=== PATIENT | male | born 1950 | race Caucasian/White ===

== ENCOUNTER → 2016-08-10 | Outpatient (CLI) | payer MEDICARE, OTHER ==
[2014-12-23 12:35] VITALS: BP 163/67
[~2016-08-10] MED LIST: ASPI325T4 PO; CLOP75TA PO; GADOBUTROL 10 MMOL/10 ML VIAL IV ONE; LISI-334 PO; METO25TA4 PO; SIMV20TA3 PO
--- NOTE | 2016-08-10 12:40 | RAD ---
PROCEDURE MRI of the cervical spine without and with contrast 08/10/2016 HISTORY Neck pain with left arm pain for the last 6 months. TECHNIQUE Unenhanced T1 weighted, T2 weighted and inversion recovery sagittal and gradient echo, T2 weighted and T1 weighted axial images of the cervical spine were obtained. After the intravenous administration of 10 cc of Gadavist, enhanced T1 weighted sagittal and axial images of the cervical spine were obtained. FINDINGS There is straightening of the normal cervical lordosis. Degenerative signal changes are seen involving all of the discs of the cervical spine. Loss of height of the C5-6 and C6-7 discs is noted. Degenerative signal changes are seen within the marrow surrounding these discs. An area of increased signal intensity is seen involving the left aspect of the cervical spinal cord on the T2 weighted and inversion recovery images at the C5-6 disc space. This measures 4 millimeters in greatest diameter. This is consistent with an area of myelomalacia/cord edema. No additional area of abnormal signal intensity is seen involving the cervical spinal cord. No abnormal area of contrast enhancement is noted. At the C2-3 disc space there is a mild generalized disc bulge. Degenerative changes are seen involving the uncovertebral and facet joints bilaterally. These findings do not result in significant central spinal canal or neural foraminal stenosis. At the C3-4 disc space there is a mild generalized disc bulge. Superimposed on this disc bulge is a focal central disc protrusion. This measures 3.5 millimeters in AP diameter. Degenerative changes are seen involving the uncovertebral and facet joints bilaterally. These findings efface the anterior CSF resulting in mild central spinal canal stenosis. The disc protrusion deforms the anterior surface of the cervical spinal cord. No neural foraminal stenosis is seen. At the C4-5 disc space there is a mild generalized disc bulge. Superimposed on this disc bulge is a left paracentral focal disc protrusion. This measures 3 millimeters in AP diameter. Degenerative changes are seen involving the uncovertebral and facet joints bilaterally. These findings efface the anterior and posterior CSF resulting in mild central spinal canal stenosis without evidence of cord impingement. No neural foraminal stenosis is seen. At the C5-6 disc space there is a mild to moderate generalized disc bulge. Superimposed on this disc bulge is a left paracentral disc osteophyte complex. This measures 4 millimeters in AP diameter degenerative changes are seen involving the uncovertebral and facet joints bilaterally. These findings when combined result in moderate to severe left greater than right central spinal canal stenosis with moderate to severe left greater than right cord impingement. Mild left greater than right neural foraminal stenosis is seen. At the C6-7 disc space there is a mild to moderate generalized disc bulge. This is eccentric to the right. Degenerative changes are seen involving the uncovertebral and facet joints, right greater than left. These findings efface the anterior CSF resulting in mild right greater than left central spinal canal stenosis. Mild right-sided cord impingement is seen. Mild to moderate right neural foraminal stenosis is noted. The left neural foramina is patent. At the C7-T1 disc space there is a mild generalized disc bulge. Degenerative changes are seen involving the facet joints bilaterally. These findings do not result in significant central spinal canal or neural foraminal stenosis. IMPRESSION Degenerative changes are seen throughout the cervical spine. These findings result in mild central spinal canal stenosis at C3-4 and C4-5, mild right greater than left central spinal canal stenosis with mild right-sided cord impingement at C6-7 and moderate to severe left greater than right central spinal canal stenosis with moderate to severe left greater than right cord impingement at C5-6. Mild left greater than right neural foraminal stenosis is seen at C5-6. Mild to moderate right neural foraminal stenosis is seen at C6-7. A 4 millimeter area of myelomalacia/cord edema is seen involving the left aspect of the cervical spinal cord at the C5-6 level. Electronically signed by: Babar Mcdaniel MD (Aug 10, 2016 12:39:30)
== END | disposition home or self-care (01) ==
LOC: MRI 09:18
PROVIDERS: ATTEND Family Medicine
DX: M54.12 Radiculopathy, cervical region (principal)
CPT/HCPCS: 72156

== ENCOUNTER → 2019-04-29 | Outpatient (CLI) | payer OTHER ==
[2014-12-23 12:35] VITALS: BP 163/67
[~2019-04-29] MED LIST changes: -ASPI325T4 PO; +ASPI325T8 PO; -GADOBUTROL 10 MMOL/10 ML VIAL IV ONE
--- NOTE | 2019-04-29 13:36 | RAD ---
DATE: 04/29/2019 EXAM: DIGITAL DIAGNOSTIC BILATERAL HISTORY: Palpable abnormality involving the right periareolar region. COMPARISON: None. This is the baseline. This study was interpreted with the benefit of Computerized Aided Detection (CAD). Breast Density: SCATTERED The breast parenchyma shows scattered fibroglandular densities. Breast parenchyma level B. FINDINGS: Marker was placed at the right upper outer periareolar region. Focal asymmetry in the subareolar periareolar region compatible with gynecomastia is present. No suspicious calcifications or distortion. Benign-appearing right axillary lymph node is seen. IMPRESSION: No suspicious process. Right gynecomastia. BI-RADS CATEGORY: 1 NEGATIVE RECOMMENDED FOLLOW-UP: CLIN FOLLOW UP IMAGING CLINICALLY INDICATED PQRS compliance statement: Patient information was entered into a reminder system with a target due date based on clinical assessment for the next mammogram. Mammography is a sensitive method for finding small breast cancers, but it does not detect them all and is not a substitute for careful clinical examination. A negative mammogram does not negate a clinically suspicious finding and should not result in delay in biopsying a clinically suspicious abnormality. "Our facility is accredited by the [employer] Mammography Program."
== END | disposition home or self-care (01) ==
LOC: US 13:15
PROVIDERS: ATTEND Family Medicine
DX: N64.89 Other specified disorders of breast (principal)
CPT/HCPCS: 77066

== ENCOUNTER → 2019-07-15 | Outpatient (CLI) | payer OTHER ==
[2014-12-23 12:35] VITALS: BP 163/67
[~2019-07-15] MED LIST changes: +SIMV20TA18 PO; -SIMV20TA3 PO
--- NOTE | 2019-07-15 11:08 | CARD ---
MR#: [id number] Date of Study: 07/15/2019 Ordering Physician: DWAYNE ATKINS, Referring Physician: DWAYNE ATKINS Tech: Melissa Canales RDCS APPROVED REPORT EXAM: Two-dimensional and M-mode echocardiogram with Doppler and color Doppler. Other Information Quality : Good INDICATION Cardiac Disease: CAD 2D DIMENSIONS RVDd2.9 (2.9-3.5cm)Left Atrium(2D)3.7 (1.6-4.0cm) IVSd1.2 (0.7-1.1cm)Aortic Root(2D)3.4 (2.0-3.7cm) LVDd5.3 (3.9-5.9cm)LVOT Diameter2.2 (1.8-2.4cm) PWd1.2 (0.7-1.1cm)LVDs2.8 (2.5-4.0cm) FS (%) 30.0 %SV106.1 ml LVEF(%)60.0 (>50%) Aortic Valve AoV Peak Abram.180.6cm/sAoV VTI33.3cm AO Peak GR.13.1mmHgLVOT Peak Abram.118.9cm/s AO Mean GR.7mmHgAVA (VMAX)2.46cm2 BRITTANY (VTI)2.70cm2 Mitral Valve MV E Nhpizwlt188.8cm/sMV DECEL [id number] MV A Rgnutckw00.5cm/sE/A Ratio1.3 Pulmonary Vein S1 [place]39.2cm/sD2 Sltiwvij48.3cm/s LEFT VENTRICLE The left ventricle is normal size. There is mild concentric left ventricular hypertrophy. The left ve ntricular systolic function is normal and the ejection fraction is within normal range. The Ejection Fraction is 55-60%. There is normal LV segmental wall motion. Transmitral Doppler flow pattern is Gra de I-abnormal relaxation pattern. RIGHT VENTRICLE The right ventricle is normal size. The right ventricular systolic function is normal. ATRIA The left atrium size is normal. The right atrium size is normal. The interatrial septum is intact wit h no evidence for an atrial septal defect or patent foramen ovale as noted on 2-D or Doppler imaging. AORTIC VALVE The aortic valve is calcified but opens well. Doppler and Color Flow revealed no significant aortic r egurgitation. There is no significant aortic valvular stenosis. MITRAL VALVE The mitral valve is normal in structure and function. There is no evidence of mitral valve prolapse. There is no mitral valve stenosis. Doppler and Color-flow revealed trace mitral regurgitation. TRICUSPID VALVE The tricuspid valve is normal in structure and function. Doppler and Color Flow revealed no tricuspid valve regurgitation noted. There is no tricuspid valve stenosis. PULMONIC VALVE Doppler and Color Flow revealed trace pulmonic valvular regurgitation. There is no pulmonic valvular stenosis. GREAT VESSELS The aortic root is normal in size. The ascending aorta is mildly dilated at 3.6 cm. The IVC is normal in size and collapses >50% with inspiration. PERICARDIAL EFFUSION There is no evidence of significant pericardial effusion. Critical Notification Critical Value: No <Conclusion> The left ventricular systolic function is normal and the ejection fraction is within normal range. Th e Ejection Fraction is 55-60%. There is normal LV segmental wall motion. The ascending aorta is mildly dilated at 3.6 cm. Signed by : Gilson Villarreal, Electronically Approved : 07/15/2019 11:07:44
== END | disposition home or self-care (01) ==
LOC: ECHO 11:00
PROVIDERS: ATTEND Internal Medicine Cardiovascular Disease
DX: I35.8 Other nonrheumatic aortic valve disorders (principal); I25.10 Atherosclerotic heart disease of native coronary artery without angina pectoris
CPT/HCPCS: 93306